=== PATIENT | male | born 1965 | race Two or more races ===

== ENCOUNTER 2017-05-19 11:11 | Inpatient (IN) | payer OTHER ==
[2017-05-19] VITALS (34 sets, daily range): BP systolic 113–146; BP diastolic 64–102; PULSE 68–92; RESP 10–26; Ht 157.5 cm; Wt 55.9 kg
[~2017-05-19] VITALS: Ht 157.5 cm; Wt 55.9 kg
[2017-05-19] MEDS ORDERED: CEFAZOLIN 2 GM/50 ML (PMX) 50 ML IVPB ONE (12:00)
[2017-05-19] MEDS ORDERED: SOD CHLORIDE 0.9% 1,000 ML IV SCH (12:00)
[2017-05-19 12:50] LABS: INR 0.99; PROTIME 13.1 Sec (12.2-14.2)
[2017-05-19 12:51] LABS: PARTIAL THROMBOPLASTIN TIME 26.8 Sec (25.0-35.0)
[2017-05-19] MEDS ORDERED: ROCURONIUM 50 MG INJ ONE (13:00)
[2017-05-19] MEDS ORDERED: BUPIVACAINE 0.25% (MPF) 30 ML INJ ONE (13:18)
[2017-05-19] MEDS ORDERED: FENTAnyl 50 MCG/ML VIAL ONE (13:32)
[2017-05-19] MEDS ORDERED: MIDAZOLAM 1 MG/ML 2 ML INJ ONE (13:33)
[2017-05-19] MEDS ORDERED: morphine 10 MG INJ ONE (13:57)
[2017-05-19] MEDS ORDERED: CEFAZOLIN 1 GM INJ ONE (14:26)
[2017-05-19] MEDS ORDERED: GLYCOPYRROLATE 0.4 MG INJ ONE (14:26)
[2017-05-19] MEDS ORDERED: LIDOCAINE 2% (SDV) 5 ML INJ ONE (14:26)
[2017-05-19] MEDS ORDERED: ONDANSETRON 4 MG INJ ONE (14:26)
[2017-05-19] MEDS ORDERED: NEOSTIGMINE 3 MG/3 ML SYRINGE ONE (14:26)
[2017-05-19] MEDS ORDERED: PROPOFOL 20 ML ONE (14:26)
--- NOTE | 2017-05-19 14:28 | OPR ---
Date/Time of Note Date/Time of Note DATE: 05/19/17 TIME: 14:25 Operative Report Procedure Date: May 19, 2017 Preoperative Diagnosis LIH Postoperative Diagnosis incarcerated Left inguinal hernia Operation Performed open incarcerated left inguinal hernia repair with mesh left ilioinguinal nerve block Surgeon: Mylene HUNTER Procedure Description Patient is taken to the OR and prepped and draped in the usual sterile fashion. Surgical timeout was performed IV antibiotics are given. Left inguinal oblique incision was made with a 10 blade. Dissection cautery was carried down to the external oblique fascia. External oblique fascia is opened with a 15 blade. This incision is extended medially inferiorly lateral superiorly with Metzenbaum scissors. Cord structures were identified. Indirect hernia is identified and reduced. The hernia defect is bolstered with the distal portion of the Ultram for hernia system mesh medium size. This is secured in place with a running 0 Prolene from the pubic tubercle along the shelving edge of the inguinal ligament. And superiorly to the internal oblique with interrupted 3-0 Vicryl. Onlay mesh is secured in a similar fashion with a running 0 Prolene from the pubic tubercle along the shelving edge of the inguinal ligament. Strep surgery created and reapproximated with interrupted 0 Prolene to recreate the inguinal ring. The onlay mesh is secured to the internal oblique with interrupted 3-0 Vicryl. Externally fascia is closed with running 3-0 Vicryl. Rajiv's was closed with interrupted 3-0 Vicryl skin closure and skin pelon. Therapeutic injection of Marcaine into the incision site. Left ilioinguinal nerve block was performed by identifying a position 2 cm medial and inferior to the ASIS. This area is injected in a fanlike motion with local anesthesia. Dry dressings were applied Mylene HUNTER May 19, 2017 14:28
[2017-05-19] MEDS ORDERED: DIPHENHYDRAMINE 50 MG INJ IV PRN (14:30)
[2017-05-19] MEDS ORDERED: MEPERIDINE 25 MG INJ IV PRN (14:30)
[2017-05-19] MEDS ORDERED: morphine (1 MG/ML) 10ML SYRINGE IV PRN (14:30)
[2017-05-19] MEDS ORDERED: ONDANSETRON 4 MG INJ IV PRN (14:30)
[2017-05-19] MEDS: FENTAnyl 50 MCG/ML VIAL IV PRN ×4 (15:04→16:26)
[2017-05-19 15:21] LABS: ADD SCAN DIFF NO; BASOPHILS % 0.6 % (0.0-2.0); EOSINOPHILS % 0.3 % (0.0-7.0); HEMATOCRIT 42.7 % (42.0-52.0); HEMOGLOBIN 14.5 g/dl (14.0-18.0); LYMPHOCYTES # 1.4 10^3/ul (0.8-2.9); MEAN CORPUSCULAR HEMOGLOBIN 32.4 pg (29.0-33.0); MEAN CORPUSCULAR VOLUME 95.5 fl (82.0-101.0); MEAN PLATELET VOLUME 8.9 fl (7.4-10.4); MONOCYTE # 0.4 10^3/ul (0.3-0.9); MONOCYTES % 5.4 % (0.0-11.0); NEUTROPHIL # 5.4 10^3/ul (1.6-7.5); NEUTROPHILS % 74.1 % (39.0-77.0); PLATELET COUNT 233 10^3/UL (140-415); RED BLOOD COUNT 4.47 10^6/ul (4.70-6.10); RED CELL DISTRIBUTION WIDTH 11.7 % (11.5-14.5); WHITE BLOOD COUNT 7.3 10^3/ul (4.8-10.8)
[2017-05-19] MEDS ORDERED: LABETALOL HCL 20MG INJ IV ONE (15:30)
[2017-05-19 15:40] LABS: ALBUMIN 4.2 g/dl (3.3-4.9); ALBUMIN/GLOBULIN RATIO 1.61; BILIRUBIN,INDIRECT 0.1 mg/dl (0-1.1); BILIRUBIN,TOTAL 0.1 mg/dl (0.2-1.3); CALCIUM 8.8 mg/dl (8.4-10.2); CREATININE 0.56 mg/dl (0.61-1.24); POTASSIUM 3.9 mmol/L (3.5-5.1); TOTAL PROTEIN 6.8 g/dl (6.1-8.1)
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
[2017-05-19] MEDS ORDERED: hydrALAzine 20 MG INJ IV PRN (16:30)
[2017-05-19] MEDS ORDERED: ALBUTEROL/IPRATROPIUM (NEB) 3 ML AMP HHN PRN (16:30)
[2017-05-19] MEDS ORDERED: ACET-141 PO (16:55)
[2017-05-19] MEDS: morphine 2 MG INJ IV PRN ×2 (17:22→21:10)
[2017-05-19] MEDS: CEFAZOLIN 2 GM/50 ML (PMX) 50 ML IVPB SCH (17:22)
[2017-05-19] MEDS: SOD CHLORIDE 0.9% 1,000 ML IV SCH (17:22)
[2017-05-19] MEDS: GABAPENTIN 100 MG CAP PO SCH (21:10)
[2017-05-19] MEDS: LEVETIRACETAM 250 MG TAB PO SCH (21:10)
[2017-05-19] MEDS: HYDROCODONE/APAP (5/325) TAB PO PRN (22:23)
[2017-05-19] MEDS: DIPHENHYDRAMINE 50 MG INJ IV PRN (22:27)
[2017-05-20] MEDS: SOD CHLORIDE 0.9% 1,000 ML IV SCH ×3 (00:24→16:22)
[2017-05-20] MEDS: morphine 2 MG INJ IV PRN ×6 (02:46→20:05)
[2017-05-20] MEDS: HYDROCODONE/APAP (5/325) TAB PO PRN ×2 (04:35→14:05)
[2017-05-20] MEDS: DIPHENHYDRAMINE 50 MG INJ IV PRN (05:39)
[2017-05-20] MEDS: CEFAZOLIN 2 GM/50 ML (PMX) 50 ML IVPB SCH ×2 (07:07)
[2017-05-20 07:44] LABS: ADD SCAN DIFF NO
[2017-05-20 07:51] LABS: BASOPHILS % 0.3 % (0.0-2.0); EOSINOPHILS # 0.1 10^3/ul (0.0-0.5); EOSINOPHILS % 0.8 % (0.0-7.0); HEMATOCRIT 38.2 % (42.0-52.0); HEMOGLOBIN 13.2 g/dl (14.0-18.0); LYMPHOCYTES # 1.3 10^3/ul (0.8-2.9); LYMPHOCYTES % 14.9 % (15.0-51.0); MEAN CORPUSCULAR HEMOGLOBIN 33.5 pg (29.0-33.0); MEAN CORPUSCULAR HGB CONC 34.6 g/dl (32.0-37.0); MEAN PLATELET VOLUME 10.3 fl (7.4-10.4); MONOCYTE # 0.7 10^3/ul (0.3-0.9); MONOCYTES % 7.8 % (0.0-11.0); NEUTROPHIL # 6.6 10^3/ul (1.6-7.5); NEUTROPHILS % 75.9 % (39.0-77.0); PLATELET COUNT 233 10^3/UL (140-415); RED BLOOD COUNT 3.94 10^6/ul (4.70-6.10); RED CELL DISTRIBUTION WIDTH 11.7 % (11.5-14.5); WHITE BLOOD COUNT 8.7 10^3/ul (4.8-10.8)
[2017-05-20 08:11] VITALS: BP 142/92; RESP 18
[2017-05-20 08:12] LABS: CALCIUM 8.3 mg/dl (8.4-10.2); CREATININE 0.63 mg/dl (0.61-1.24); POTASSIUM 3.6 mmol/L (3.5-5.1)
[2017-05-20] MEDS: LEVETIRACETAM 250 MG TAB PO SCH ×2 (08:42→20:05)
[2017-05-20] MEDS: GABAPENTIN 100 MG CAP PO SCH ×3 (08:42→21:38)
--- NOTE | 2017-05-20 11:47 | PN ---
Date/Time of Note Date/Time of Note DATE: 05/20/17 TIME: 11:46 Assessment/Plan VTE Prophylaxis VTE Prophylaxis Intervention: other Lines/Catheters IV Catheter Type (from Nrsg): Peripheral IV Assessment/Plan Chief Complaint/Hosp Course -Incarcerated left inguinal hernia status post repair. Continue Zofran for per nausea and Tylenol and morphine as needed for pain. Advance diet per surgery. Continue postoperative antibiotics. -Seizure disorder, continue Keppra -Hypertension continue hydralazine as needed for systolic blood pressure above 170 -COPD, will administer breathing treatment as needed for shortness of breath -Depression -BPH -Hepatitis C Problems: Subjective 24 Hr Interval Summary Free Text/Dictation Patient complain of pain in site of surgery and in his mouth related to abscess Exam/Review of Systems Vital Signs Vitals Vital Signs Date Time Temp Pulse Resp B/P Pulse Ox O2 Delivery O2 Flow Rate FiO2 05/20/17 08:11 97.6 68 18 142/92 100 05/19/17 20:00 Nasal Cannula 2.0 Intake and Output 05/19/17 05/19/17 05/20/17 15:00 23:00 07:00 Intake Total 1200 ml 290 ml 1480 ml Output Total 105 ml 100 ml 1300 ml Balance 1095 ml 190 ml 180 ml Exam Constitutional: well developed Head: atraumatic, normocephalic Neck: supple Respiratory: clear to auscultation Cardiovascular: regular rate and rhythm Gastrointestinal: non-tender, soft Extremities: normal pulses Results Result Diagram: 05/20/17 0615 05/20/17 0615 Results 24 hrs Laboratory Tests Test 05/19/17 12:30 05/19/17 15:15 05/20/17 06:15 Prothrombin Time 13.1 Prothrombin Time Ratio 1.0 INR International Normalized Ratio 0.99 Activated Partial Thromboplast Time 26.8 White Blood Count 7.3 8.7 Red Blood Count 4.47 L 3.94 L Hemoglobin 14.5 13.2 L Hematocrit 42.7 38.2 L Mean Corpuscular Volume 95.5 97.0 Mean Corpuscular Hemoglobin 32.4 33.5 H Mean Corpuscular Hemoglobin Concent 34.0 34.6 Red Cell Distribution Width 11.7 11.7 Platelet Count 233 233 Mean Platelet Volume 8.9 10.3 Neutrophils % 74.1 75.9 Lymphocytes % 19.0 14.9 L Monocytes % 5.4 7.8 Eosinophils % 0.3 0.8 Basophils % 0.6 0.3 Nucleated Red Blood Cells % 0.0 0.0 Neutrophils # 5.4 6.6 Lymphocytes # 1.4 1.3 Monocytes # 0.4 0.7 Eosinophils # 0.0 0.1 Basophils # 0.0 0.0 Nucleated Red Blood Cells # 0.0 0.0 Sodium Level 144 136 Potassium Level 3.9 3.6 Chloride Level 105 103 Carbon Dioxide Level 28 26 Anion Gap 15 11 Blood Urea Nitrogen 16 11 Creatinine 0.56 L 0.63 Glucose Level 100 95 Calcium Level 8.8 8.3 L Total Bilirubin 0.1 L Direct Bilirubin 0.00 Indirect Bilirubin 0.1 Aspartate Amino Transf (AST/SGOT) 33 Alanine Aminotransferase (ALT/SGPT) 39 Alkaline Phosphatase 68 Total Protein 6.8 Albumin 4.2 Globulin 2.60 Albumin/Globulin Ratio 1.61 Medications Medications Current Medications Cefazolin Sodium/ Dextrose (Ancef 2 Gm/50 ml (Pmx)) 50 ml @ 100 mls/hr Q8H IVPB Last administered on 05/20/17 07:07; Admin Dose 100 MLS/HR; Start 05/19/17 at 14:30; Stop 05/20/17 at 14:29 Morphine Sulfate (morphine) 2 mg Q2H PRN IV PAIN LEVEL 6-10 Last administered on 05/20/17 11:14; Admin Dose 2 MG; Start 05/19/17 at 14:30 Acetaminophen/ Hydrocodone Bitart 1 tab 1 tab Q6H PRN PO PAIN LEVEL 6-10 Last administered on 05/20/17 04:35; Admin Dose 1 TAB; Start 05/19/17 at 14:30 Sodium Chloride (NS) 1,000 ml @ 100 mls/hr Q10H IV Last administered on 04:40; Admin Dose 100 MLS/HR; Start 05/19/17 at 14:24 Levetiracetam (Keppra) 250 mg BID PO Last administered on 05/20/17 08:42; Admin Dose 250 MG; Start 05/19/17 at 21:00 Gabapentin (Neurontin) 100 mg TID PO Last administered on 05/20/17 08:42; Admin Dose 100 MG; Start 7/7/17 at 21:00 Hydralazine HCl (Apresoline) 10 mg Q6H PRN IV SBP>170; Start 05/19/17 at 16:30 Diphenhydramine HCl (Benadryl) 25 mg Q6H PRN IV PRURITUS Last administered on t 05:39; Admin Dose 25 MG; Start 05/19/17 at 22:00 MARI KHAN May 20, 2017 11:47
[2017-05-20] MEDS: BISACODYL (EC) 5 MG TAB PO PRN (17:37)
[2017-05-20] MEDS: AMOXICILLIN/CLAV 875 MG TAB PO SCH (20:04)
[2017-05-20 20:58] VITALS: BP 147/87; RESP 20
[2017-05-21] MEDS: morphine 2 MG INJ IV PRN ×6 (00:14→16:49)
[2017-05-21 02:00] VITALS: BP 156/86; PULSE 80
[2017-05-21] MEDS: SOD CHLORIDE 0.9% 1,000 ML IV SCH (02:32)
[2017-05-21 08:16] VITALS: BP 153/97; RESP 19
[2017-05-21] MEDS: LEVETIRACETAM 250 MG TAB PO SCH ×2 (08:28→20:32)
[2017-05-21] MEDS: AMOXICILLIN/CLAV 875 MG TAB PO SCH ×2 (08:28→20:31)
[2017-05-21] MEDS: GABAPENTIN 100 MG CAP PO SCH ×3 (08:28→20:32)
[2017-05-21] MEDS: HYDROCODONE/APAP (5/325) TAB PO PRN ×2 (08:29→20:32)
[2017-05-21] MEDS: BISACODYL (EC) 5 MG TAB PO PRN (08:29)
--- NOTE | 2017-05-21 11:51 | PN ---
Date/Time of Note Date/Time of Note DATE: 05/21/17 TIME: 11:50 Assessment/Plan VTE Prophylaxis VTE Prophylaxis Intervention: other Lines/Catheters IV Catheter Type (from Nrsg): Peripheral IV Assessment/Plan Chief Complaint/Hosp Course -Incarcerated left inguinal hernia status post repair. Continue Zofran for per nausea and Tylenol and morphine as needed for pain. Advance diet per surgery. Continue postoperative antibiotics. -Seizure disorder, continue Keppra -Hypertension continue hydralazine as needed for systolic blood pressure above 170 -COPD, will administer breathing treatment as needed for shortness of breath -Depression -BPH -Hepatitis C Problems: Subjective 24 Hr Interval Summary Free Text/Dictation Patient complain of pain in mouth from tooth infection Exam/Review of Systems Vital Signs Vitals Vital Signs Date Time Temp Pulse Resp B/P Pulse Ox O2 Delivery O2 Flow Rate FiO2 05/21/17 08:16 98.2 80 19 153/97 96 05/21/17 02:00 Room Air 05/19/17 20:00 2.0 Intake and Output 05/20/17 05/20/17 05/21/17 15:00 23:00 07:00 Intake Total 1940 ml 1700 ml Output Total 1750 ml 2400 ml Balance 190 ml -700 ml Exam Constitutional: well developed Head: atraumatic, normocephalic Neck: supple Respiratory: clear to auscultation Cardiovascular: regular rate and rhythm Gastrointestinal: soft, tender Extremities: normal pulses Results Result Diagram: 05/20/17 0615 05/20/17 0615 Medications Medications Current Medications Morphine Sulfate (morphine) 2 mg Q2H PRN IV PAIN LEVEL 6-10 Last administered on 05/21/17 09:54; Admin Dose 2 MG; Start 05/19/17 at 14:30 Acetaminophen/ Hydrocodone Bitart 1 tab 1 tab Q6H PRN PO PAIN LEVEL 6-10 Last administered on 05/21/17 08:29; Admin Dose 1 TAB; Start 05/19/17 at 14:30 Sodium Chloride (NS) 1,000 ml @ 100 mls/hr Q10H IV Last administered on 02:32; Admin Dose 100 MLS/HR; Start 05/19/17 at 14:24 Levetiracetam (Keppra) 250 mg BID PO Last administered on 05/21/17 08:28; Admin Dose 250 MG; Start 05/19/17 at 21:00 Gabapentin (Neurontin) 100 mg TID PO Last administered on 05/21/17 08:28; Admin Dose 100 MG; Start 05/19/17 at 21:00 Hydralazine HCl (Apresoline) 10 mg Q6H PRN IV SBP>170; Start 05/19/17 at 16:30 Diphenhydramine HCl (Benadryl) 25 mg Q6H PRN IV PRURITUS Last administered on 05:39; Admin Dose 25 MG; Start 05/19/17 at 22:00 Amoxicillin/ Clavulanate Potassium (Augmentin) 875 mg BID PO Last administered on 05/21/17 08:28; Admin Dose 875 MG; Start 05/20/17 at 21:00 Bisacodyl (Dulcolax) 10 mg Q6H PRN PO CONSTIPATION Last administered on 08:29; Admin Dose 10 MG; Start 05/20/17 at 17:30 MARI KHAN Y May 21, 2017 11:51
[2017-05-21] MEDS ORDERED: MAGNESIUM CITRATE 300 ML BTL PO ONE (15:00)
[2017-05-21 19:10] VITALS: BP 149/97; RESP 19
[2017-05-22] MEDS: HYDROCODONE/APAP (5/325) TAB PO PRN ×3 (02:47→20:21)
[2017-05-22] MEDS: DIPHENHYDRAMINE 50 MG INJ IV PRN (06:38)
[2017-05-22 08:00] VITALS: BP 132/91; RESP 19
[2017-05-22] MEDS: GABAPENTIN 100 MG CAP PO SCH ×3 (08:57→20:21)
[2017-05-22] MEDS: AMOXICILLIN/CLAV 875 MG TAB PO SCH ×2 (08:57→20:20)
[2017-05-22] MEDS: LEVETIRACETAM 250 MG TAB PO SCH ×2 (08:58→20:20)
[2017-05-22] MEDS: morphine 2 MG INJ IV PRN (14:11)
--- NOTE | 2017-05-22 15:36 | PN ---
Date/Time of Note Date/Time of Note DATE: 05/22/17 TIME: 15:35 Assessment/Plan VTE Prophylaxis VTE Prophylaxis Intervention: SCD's Lines/Catheters IV Catheter Type (from Nrsg): Saline Lock Assessment/Plan Chief Complaint/Hosp Course s/p open LIH repair with no medical issues however social issues and housing and support is a factor Problems: Assessment/Plan dc home when cleared with social professionals Subjective 24 Hr Interval Summary Free Text/Dictation stayed in hospital for social reasons, no issues medically, Exam/Review of Systems Vital Signs Vitals Vital Signs Date Time Temp Pulse Resp B/P Pulse Ox O2 Delivery O2 Flow Rate FiO2 05/22/17 08:00 98.3 70 19 132/91 96 05/21/17 02:00 Room Air 05/19/17 20:00 2.0 Intake and Output 05/21/17 05/21/17 05/22/17 15:00 23:00 07:00 Intake Total 600 ml 880 ml Output Total 1100 ml Balance 600 ml -220 ml Exam c/d/i Results Result Diagram: 05/20/1715 05/20/1715 Medications Medications Current Medications Morphine Sulfate (morphine) 2 mg Q2H PRN IV PAIN LEVEL 6-10 Last administered on 05/22/17 14:11; Admin Dose 2 MG; Start 05/19/17 at 14:30 Acetaminophen/ Hydrocodone Bitart ([place] (5/325)) 1 tab Q6H PRN PO PAIN LEVEL 6 -10 Last administered on 05/21/17 08:29; Admin Dose 1 TAB; Start 05/19/17 at 14: 30 Levetiracetam (Keppra) 250 mg BID PO Last administered on 05/22/17 08:58; Admin Dose 250 MG; Start 05/19/17 at 21:00 Gabapentin (Neurontin) 100 mg TID PO Last administered on 05/22/17 13:20; Admin Dose 100 MG; Start 05/19/17 at 21:00 Hydralazine HCl (Apresoline) 10 mg Q6H PRN IV SBP>170; Start 05/19/17 at 16:30 Diphenhydramine HCl (Benadryl) 25 mg Q6H PRN IV PRURITUS Last administered on 06:38; Admin Dose 25 MG; Start 05/19/17 at 22:00 Amoxicillin/ Clavulanate Potassium (Augmentin) 875 mg BID PO Last administered on 05/22/17 08:57; Admin Dose 875 MG; Start 05/20/17 at 21:00 Bisacodyl (Dulcolax) 10 mg Q6H PRN PO CONSTIPATION Last administered on 08:29; Admin Dose 10 MG; Start 05/20/17 at 17:30 Acetaminophen/ Hydrocodone Bitart ([place] (5/325)) 2 tab Q6H PRN PO SEVERE PAIN LEVEL 7-10 Last administered on 05/22/17 08:58; Admin Dose 2 TAB; Start at 20:00 Mylene HUNTER May 22, 2017 15:36
--- NOTE | 2017-05-22 16:51 | PN ---
Date/Time of Note Date/Time of Note DATE: 05/22/17 TIME: 16:49 Assessment/Plan VTE Prophylaxis VTE Prophylaxis Intervention: SCD's Lines/Catheters IV Catheter Type (from Nrsg): Saline Lock Assessment/Plan Chief Complaint/Hosp Course Patient pain is well controlled, able to tolerate diet well, bowel movement +. Assessment/Plan -Incarcerated left inguinal hernia status post repair. Continue Zofran for per nausea and Tylenol and morphine as needed for pain. -Seizure disorder, continue Keppra -Hypertension, continue hydralazine as needed for systolic blood pressure above 170 -COPD, will administer breathing treatment as needed for shortness of breath -Depression -BPH -Hepatitis C -Homelessness, social media content manager and case management for rehab placement. Further recommendations based on clinical course. Plan of care discussed with Dr. Ramsay. Problems: Exam/Review of Systems Vital Signs Vitals Vital Signs Date Time Temp Pulse Resp B/P Pulse Ox O2 Delivery O2 Flow Rate FiO2 05/22/17 08:00 98.3 70 19 132/91 96 05/21/17 02:00 Room Air 05/19/17 20:00 2.0 Intake and Output 05/21/17 05/21/17 05/22/17 15:00 23:00 07:00 Intake Total 600 ml 880 ml Output Total 1100 ml Balance 600 ml -220 ml Exam Constitutional: alert, oriented Head: normocephalic Neck: supple Cardiovascular: nl pulses Gastrointestinal: non-tender, other (Left lower quadrant status post surgery) Extremities: normal pulses Neurological: nl mental status Results Result Diagram: 05/20/1715 05/20/1715 Medications Medications Current Medications Morphine Sulfate (morphine) 2 mg Q2H PRN IV PAIN LEVEL 6-10 Last administered on 05/22/17 14:11; Admin Dose 2 MG; Start 05/19/17 at 14:30 Acetaminophen/ Hydrocodone Bitart ([place] (5/325)) 1 tab Q6H PRN PO PAIN LEVEL 6 -10 Last administered on 05/21/17 08:29; Admin Dose 1 TAB; Start 05/19/17 at 14: 30 Levetiracetam (Keppra) 250 mg BID PO Last administered on 05/22/17 08:58; Admin Dose 250 MG; Start 05/19/17 at 21:00 Gabapentin (Neurontin) 100 mg TID PO Last administered on 05/22/17 13:20; Admin Dose 100 MG; Start 05/19/17 at 21:00 Hydralazine HCl (Apresoline) 10 mg Q6H PRN IV SBP>170; Start 05/19/17 at 16:30 Diphenhydramine HCl (Benadryl) 25 mg Q6H PRN IV PRURITUS Last administered on 06:38; Admin Dose 25 MG; Start 05/19/17 at 22:00 Amoxicillin/ Clavulanate Potassium (Augmentin) 875 mg BID PO Last administered on 05/22/17 08:57; Admin Dose 875 MG; Start 05/20/17 at 21:00 Bisacodyl (Dulcolax) 10 mg Q6H PRN PO CONSTIPATION Last administered on 08:29; Admin Dose 10 MG; Start 05/20/17 at 17:30 Acetaminophen/ Hydrocodone Bitart ([place] (5/325)) 2 tab Q6H PRN PO SEVERE PAIN LEVEL 7-10 Last administered on 05/22/17 08:58; Admin Dose 2 TAB; Start at 20:00 HIPOLITO LANDERS May 22, 2017 16:50
[2017-05-22] MEDS ORDERED: ACETAMINOPHEN 325 MG TAB PO PRN (18:30)
[2017-05-22 19:49] VITALS: BP 132/72; RESP 19
[2017-05-22] MEDS: BISACODYL (EC) 5 MG TAB PO PRN (20:21)
[2017-05-23] MEDS: HYDROCODONE/APAP (5/325) TAB PO PRN (04:55)
[2017-05-23] MEDS: BISACODYL (EC) 5 MG TAB PO PRN (04:55)
[2017-05-23 08:00] VITALS: BP 143/98; RESP 18
[2017-05-23] MEDS: GABAPENTIN 100 MG CAP PO SCH ×2 (08:10→12:11)
[2017-05-23] MEDS: AMOXICILLIN/CLAV 875 MG TAB PO SCH (08:10)
[2017-05-23] MEDS: LEVETIRACETAM 250 MG TAB PO SCH (08:11)
[2017-05-23] MEDS ORDERED: LEVE250T66 PO (15:32)
[2017-05-23] MEDS ORDERED: AMOX1TAB10 PO (15:32)
[2017-05-23] MEDS ORDERED: HYDR-3498 PO (15:32)
--- NOTE | 2017-05-23 15:34 | PDOCDIS ---
Discharge Instructions CONDITION Patient Condition: Good HOME CARE INSTRUCTIONS: Diet Instructions: RegularSpecial Diet: REGULAR ACTIVITY: Activity Restrictions: Slowly Increase Activity Rest between Activity Avoid heavy lifting Do not operate Machinery Do not operate Power Tool Avoid Heavy Housework Bathing Restrictions: Tub Bath FOLLOW UP/APPOINTMENTS Follow-up Plan f/up with Dr Key in 2 weeks. HIPOLITO LANDERS May 23, 2017 15:34
--- NOTE | 2017-05-23 16:12 | PN ---
Date/Time of Note Date/Time of Note DATE: 05/23/17 TIME: 16:11 Assessment/Plan VTE Prophylaxis VTE Prophylaxis Intervention: SCD's Lines/Catheters IV Catheter Type (from Nrsg): Saline Lock Assessment/Plan Chief Complaint/Hosp Course s/p open LIH repair with no medical issues however social issues and housing and support is a factor Problems: Assessment/Plan f/u in 2 weeks Subjective 24 Hr Interval Summary Free Text/Dictation doing well social situation addressed by psychologist social Exam/Review of Systems Vital Signs Vitals Vital Signs Date Time Temp Pulse Resp B/P Pulse Ox O2 Delivery O2 Flow Rate FiO2 05/23/17 08:00 97.8 75 18 143/98 96 05/21/17 02:00 Room Air 05/19/17 20:00 2.0 Intake and Output 05/22/17 05/22/17 05/23/17 15:00 23:00 07:00 Intake Total 1400 ml Output Total 1200 ml Balance 200 ml Exam c/d/i Results Result Diagram: 05/20/1715 05/20/17 0615 Medications Medications Current Medications Morphine Sulfate (morphine) 2 mg Q2H PRN IV PAIN LEVEL 6-10 Last administered on 05/22/17 14:11; Admin Dose 2 MG; Start 05/19/17 at 14:30 Acetaminophen/ Hydrocodone Bitart ([place] (5/325)) 1 tab Q6H PRN PO PAIN LEVEL 6 -10 Last administered on 05/21/17 08:29; Admin Dose 1 TAB; Start 05/19/17 at 14: 30 Levetiracetam (Keppra) 250 mg BID PO Last administered on 05/23/17 08:11; Admin Dose 250 MG; Start 05/19/17 at 21:00 Gabapentin (Neurontin) 100 mg TID PO Last administered on 05/23/17 12:11; Admin Dose 100 MG; Start 05/19/17 at 21:00 Hydralazine HCl (Apresoline) 10 mg Q6H PRN IV SBP>170; Start 05/19/17 at 16:30 Diphenhydramine HCl (Benadryl) 25 mg Q6H PRN IV PRURITUS Last administered on 06:38; Admin Dose 25 MG; Start 05/19/17 at 22:00 Amoxicillin/ Clavulanate Potassium (Augmentin) 875 mg BID PO Last administered on 05/23/17 08:10; Admin Dose 875 MG; Start 05/20/17 at 21:00 Bisacodyl (Dulcolax) 10 mg Q6H PRN PO CONSTIPATION Last administered on 04:55; Admin Dose 10 MG; Start 05/20/17 at 17:30 Acetaminophen/ Hydrocodone Bitart ([place] (5/325)) 2 tab Q6H PRN PO SEVERE PAIN LEVEL 7-10 Last administered on 05/23/17 04:55; Admin Dose 2 TAB; Start at 20:00 Acetaminophen (Tylenol Tab) 650 mg Q4H PRN PO PAIN AND OR ELEVATED TEMP; Start 05/22/17 at 18:30 Mylene HUNTER May 23, 2017 16:12
--- NOTE | 2017-05-23 17:55 | DS ---
Date/Time of Note Date/Time of Note DATE: 05/23/17 TIME: 17:52 Discharge Summary Admission/Discharge Info Admit Date/Time May 20, 2017 at 13:00 Discharge Date/Time May 23, 2017 at 16:35 Discharge Diagnosis -Incarcerated left inguinal hernia status post repair. -Seizure disorder, continue Keppra -Hypertension -COPD -Depression -BPH -Hepatitis C -Homelessness Patient Condition: Good Hx of Present Illness The patient is a 52-year-old gentleman with past medical history including hypertension, COPD, arthritis, depression, BPH, lumbar radiculopathy, seizure disorder, hepatitis C, brain injury. Patient presented with incarcerated left inguinal hernia and was evaluated by Dr. Key in surgical consultation. Patient was brought to the hospital and underwent incarcerated left inguinal hernia repair with mesh. Postoperatively patient experienced some pain and nausea and patient will be admitted for further evaluation and management. Patient denies any chest pain denies any shortness of breath, denies chest pain, denies fever chills. Hospital Course -Incarcerated left inguinal hernia status post repair by Dr. Key. Patient was given Zofran for per nausea and Tylenol and morphine as needed for pain. -Seizure disorder, continue Keppra -Hypertension, continue hydralazine as needed for systolic blood pressure above 170 -COPD, will administer breathing treatment as needed for shortness of breath -Depression -BPH -Hepatitis C -Homelessness Patient's condition improved and patient will be discharged to [facility] per psych social worker and case management arrangement. Home Meds Active Scripts Hydrocodone Bit-Acetaminophen (Hydrocodone Bit-APAP) 5-325MG Tablet, 1 TAB PO Q6H Y for PAIN LEVEL 6-10, #30 TAB Prov:HIPOLITO LANDERS 05/23/17 Levetiracetam* (Keppra*) 250 Mg Tab, 250 MG PO BID for 30 Days, TAB Prov:HIPOLITO LANDERS 05/23/17 Amoxicillin/Potassium Clav (Amox-Clav 875-125 mg Tablet) 875-125 mg Tab, 875 MG PO BID for 5 Days, TAB Prov:HIPOLITO LANDERS 05/23/17 Reported Medications Acetaminophen* (Acetaminophen*) 500 MG Extra Strength Tablet, 500 MG PO Q8H Y for PAIN AND OR ELEVATED TEMP, TAB 05/19/17 Follow-up Plan Follow-up with Dr. Key in 2 weeks. Primary Care Provider [facility] Time spent on discharge: > 30 minutes HIPOLITO LANDERS May 23, 2017 17:54
== END 2017-05-23 16:35 | disposition home or self-care (01) | DRG 352 ==
LOC: SDS 11:11 → EDBD 12:30 → SDS 16:59 → MS1 17:00 → OBSVTOIN 05-20 13:00
PROVIDERS: ADMIT Internal Medicine; ATTEND Internal Medicine
PROC: 0YU60JZ Supplement Left Inguinal Region with Synthetic Substitute, Open Approach (ICD-10-PCS; principal; 2017-05-19 12:00)
DX: K40.30 Unilateral inguinal hernia, with obstruction, without gangrene, not specified as recurrent (principal); I10 Essential (primary) hypertension; G40.909 Epilepsy, unspecified, not intractable, without status epilepticus; J44.9 Chronic obstructive pulmonary disease, unspecified; F32.9 Major depressive disorder, single episode, unspecified; N40.0 Benign prostatic hyperplasia without lower urinary tract symptoms; F17.210 Nicotine dependence, cigarettes, uncomplicated; B18.2 Chronic viral hepatitis C; Z59.0 Homelessness
CPT/HCPCS: 80048; 80053; 85025; 85610; 85730; C1781; G0378; J0690; J1200; J2250; J2270; J2405; J2710; J3010; J7030